=== PATIENT | male | born 1980 | race Asian ===

== ENCOUNTER 2023-05-13 13:49 | Emergency (ER) | payer SELFPAY ==
[2023-05-13 14:00] VITALS: BP 138/89; PULSE 110; RESP 22; TEMP 36.8; O2SAT 98; BMI 34.4
--- NOTE | 2023-05-13 14:08 | DI.RAD.S_ITS ---
PROCEDURE: XR CHEST 1V INDICATIONS: Shortness of breath TECHNIQUE: One view of the chest was acquired. COMPARISON: None. FINDINGS: Surgical changes and devices: None. Lungs and pleura: Mild patchy right basilar airspace opacity. No pleural effusions or pneumothorax. Mediastinum: Mediastinal contours appear normal. Heart size is normal. Bones and chest wall: No suspicious bony lesions. Overlying soft tissues appear unremarkable. IMPRESSION: Right basilar pneumonia. Continued plain film surveillance is recommended to ensure resolution, and to exclude underlying or central malignancy. Dictated by: Apoorva Nova M.D. on 05/13/2023 at 14:41 Approved by: Apoorva Nova M.D. on 05/13/2023 at 14:41
[2023-05-13 14:22] VITALS: BP 116/79; PULSE 100; RESP 20; O2SAT 96
[2023-05-13 14:53] LABS: Influenza A - CEPHEID Flu A NEGATIVE (NEGATIVE); Influenza B - CEPHEID Flu B NEGATIVE (NEGATIVE); Respiratory Syncytial Virus Negative (Negative)
--- NOTE | 2023-05-13 14:59 | ED.SOB ---
HPI - SOB/Dyspnea <Wanda White PA-C - Last Filed: 05/13/23 15:29> General Chief Complaint: Shortness of Breath/Dyspnea Stated Complaint: wants cough checked on Time Seen by Provider: 05/13/23 14:33 Source: patient Mode of arrival: Ambulatory Limitations: no limitations History of Present Illness HPI Narrative: 42-year-old male presents to the ED with 3 weeks of residual cough from a viral URI. Patient also endorses that he tires easily on exertion. Patient denies fever, chills, chest pain, shortness of breath, nausea, vomiting, lightheadedness, dizziness, syncope. Patient has been taking [id number] Robitussin with no relief. Related Data Previous Rx's Medication Instructions Recorded azithromycin 250 mg tablet See Rx Instructions PO .COMPLEX #6 05/13/23 (Zithromax Z-Gavin) tabs benzonatate 200 mg capsule 200 mg PO TID PRN cough #30 caps 05/13/23 Allergies Allergy/AdvReac Type Severity Reaction Status Date / Time No Known Drug Allergies Allergy Verified 05/13/23 14:00 Review of Systems <Wanda White PA-C - Last Filed: 05/13/23 15:29> Constitutional Constitutional: Denies chills, Denies fatigue, Denies fever(s), Denies frequent falls, Denies lethargy and Denies weakness Eyes Eyes: Denies change in vision, Denies eye discharge, Denies irritation and Denies loss of vision ENT Ears, Nose, Mouth, and Throat: Denies change in voice, Denies dizziness, Denies neck pain, Denies sore throat and Denies throat swelling Cardiovascular Cardiovascular: Denies chest pain, Denies irregular heart rhythm, Denies lightheadedness, Denies palpitations, Denies dyspnea, Reports dyspnea on exertion and Denies orthopnea Respiratory Respiratory: Reports cough, Denies dyspnea, Reports dyspnea on exertion and Denies wheezing Gastrointestinal Gastrointestinal: Denies abdominal pain, Denies change in bowel habits, Denies diarrhea, Denies nausea and Denies vomiting Musculoskeletal Musculoskeletal: Denies neck pain and Denies numbness Integumentary/Breasts Skin/Breast: Denies pruritus, Denies erythema, Denies rash and Denies wounds Neurologic Neurologic: Denies behavioral changes, Denies confusion, Denies dizziness, Denies frequent falls, Denies loss of vision, Denies numbness and Denies weakness Psychiatric Psychiatric: Denies anxiety, Denies behavioral changes, Denies confusion, Denies depression, Denies homicidal ideation and Denies suicidal ideation Endocrine Endocrine: Denies fatigue, Denies flushing and Denies palpitations Hematologic/Lymphatic Hematologic/Lymphatic: Denies easy bruising Allergic/Immunologic Allergic/Immunologic: Denies urticaria, Denies throat swelling and Denies wheezing Patient History <Wanda White PA-C - Last Filed: 05/13/23 15:29> Social History Smoking Status: Current every day smoker Smoking Status: Current every day smoker tobacco type: vaping Substance Use Type: marijuana Exam <Wanda White PA-C - Last Filed: 05/13/23 15:29> Narrative Exam Narrative: Const General:?cooperative, healthy appearing and comfortable HENMD Head:?normal to inspection Ears:?hearing grossly normal bilaterally Nose:?external nose normal Face and sinus:?normal facial exam and sinuses nontender Mouth:?oral mucosae normal Throat:?posterior oropharynx normal Eyes General:?appearance normal, both eyes and all related structures Neck Neck:?normal visual inspection and no lymphadenopathy noted Resp Effort & Inspection:?normal respiratory effort Auscultation:?clear to auscultation bilaterally Cardio Rate:?regular rate Rhythm:?regular rhythm Neuro General:?patient alert, patient awake and patient oriented x3 Initial Vital Signs Initial Vital Signs: Vital Signs Temperature 98.3 F 05/13/23 14:00 Pulse Rate 110 H 05/13/23 14:00 Respiratory Rate 05/13/23 14:00 Blood Pressure 138/89 05/13/23 14:00 Pulse Oximetry 98 05/13/23 14:00 Oxygen Delivery Method Room Air 05/13/23 14:00 <Kristal Paulino DO - Last Filed: 05/13/23 19:12> Initial Vital Signs Initial Vital Signs: Vital Signs Temperature 98.3 F 05/13/23 14:00 Pulse Rate 110 H 05/13/23 14:00 Respiratory Rate 22 05/13/23 14:00 Blood Pressure 138/89 05/13/23 14:00 Pulse Oximetry 98 05/13/23 14:00 Oxygen Delivery Method Room Air 05/13/23 14:00 Course <Wanda White PA-C - Last Filed: 05/13/23 15:29> Orders Ordered: ED Orders 05/13/23 14:05 Covid-19 + FLU A/B + RSV - PCR Stat 05/13/23 14:08 XR chest 1V Stat EKG-12 Lead Stat Measure peak expiratory flow ONCE RT Consult Eval and Treat NOW Vital Signs Vital signs: Vital Signs - 8 hr 05/13/23 14:00 05/13/23 14:22 Temperature 98.3 F Pulse Rate 110 H 100 H Respiratory Rate 22 20 Blood Pressure 138/89 116/79 Pulse Oximetry 98 96 Oxygen Delivery Method Room Air Room Air <Kristal Paulino DO - Last Filed: 05/13/23 19:12> Orders Ordered: ED Orders 05/13/23 14:05 Covid-19 + FLU A/B + RSV - PCR Stat 05/13/23 14:08 XR chest 1V Stat EKG-12 Lead Stat Measure peak expiratory flow ONCE RT Consult Eval and Treat NOW Vital Signs Vital signs: Vital Signs - 8 hr 05/13/23 14:00 05/13/23 14:22 Temperature 98.3 F Pulse Rate 110 H 100 H Respiratory Rate 22 20 Blood Pressure 138/89 116/79 Pulse Oximetry 98 96 Oxygen Delivery Method Room Air Room Air MDM - SOB/Dyspnea <Wanda White PA-C - Last Filed: 05/13/23 15:29> Lab Data Labs: Lab Results 05/13/23 Range/Units 14:05 SARS-CoV-2 (PCR) Negative (Negative) Influenza A (RT-PCR) Flu a negative (NEGATIVE) Influenza B (RT-PCR) Flu b negative (NEGATIVE) RSV (PCR) Negative (Negative) MDM Narrative Medical decision making narrative: 42-year-old male presents to the ED with 3 weeks of residual cough from a viral URI. Concern for pneumonia versus viral URI versus acute bronchitis versus other. Obtained chest x-ray which shows right basilar pneumonia. Respiratory swab negative for influenza, COVID-19, RSV. Prescribed Z-Gavin and Tessalon Perles. Recommend follow-up with PCP as soon as possible. ED return precautions discussed with patient. Patient verbalized understanding. Medical records reviewed: Yes <Kristal Paulino DO - Last Filed: 05/13/23 19:12> Lab Data Labs: Lab Results 05/13/23 Range/Units 14:05 SARS-CoV-2 (PCR) Negative (Negative) Influenza A (RT-PCR) Flu a negative (NEGATIVE) Influenza B (RT-PCR) Flu b negative (NEGATIVE) RSV (PCR) Negative (Negative) Discharge Plan Departure Patient Disposition: Home Clinical Impression: Community acquired pneumonia Instructions: DI for Pneumonia -- Adult Activity Restrictions/Additional Instructions: You were evaluated in the ED today for a residual cough from a upper respiratory infection. Your chest xray shows a pneumonia for which you are being prescribed antibiotics. You are being prescribed Tessalon Perles for your cough. Please take those as prescribed. You may also use Mucinex for your symptoms. Please continue to stay well hydrated. Please follow-up with your PCP as soon as possible. Return to the ED if you have worsening symptoms, persistent vomiting, chest pain, shortness of breath. Prescriptions: New benzonatate 200 mg capsule 200 mg PO TID PRN (Reason: cough) Qty: 30 0RF azithromycin [Zithromax Z-Gavin] 250 mg tablet See Rx Instructions .ROUTE .COMPLEX Qty: 6 0RF Rx Instructions: For 250 mg dose pack: take 500 mg today (day 1), then 250 mg for 4 days (days 2-5) Stand Alone Forms: Patient Portal/API ED Sign-out <Kristal Paulino DO - Last Filed: 05/13/23 19:12> Cosign ED Attending Sebastianature Attestation: I was immediately available in the department for consultation.
[2023-05-13 15:01] LABS: COVID-19 CEPHEID 4-PLEX PCR Negative (Negative)
== END 2023-05-13 14:55 | disposition home or self-care (01) ==
PROVIDERS: Emergency Medicine; Emergency Provider Student in an Organized Health Care Education/Training Program
DX: J18.9 Pneumonia, unspecified organism (principal)
CPT/HCPCS: 0241U; 71045; 93005; 93010; 99281; 99284

== ENCOUNTER 2024-02-20 21:22 | Emergency (ER) | payer OTHER, SELFPAY ==
[2024-02-20 21:32] VITALS: BP 130/77; PULSE 106; RESP 16; TEMP 37.1; O2SAT 99; BMI 36.5
--- NOTE | 2024-02-20 21:55 | ED.URI ---
HPI - URI/Sore Throat General Chief Complaint: Upper Respiratory Symptoms Stated Complaint: Bad Sore Throat, Diff Swallowing Time Seen by Provider: 02/20/24 21:25 Source: patient Mode of arrival: Ambulatory History of Present Illness HPI Narrative: 43-year-old male with no reported past medical history presents for 3 days of sore throat. Patient states that he has trouble both swallowing and spitting saliva. Denies fevers. Is concerned that he has strep throat. Related Data Previous Rx's Medication Instructions Recorded azithromycin 250 mg tablet See Rx Instructions PO .COMPLEX #6 05/13/23 (Zithromax Z-Gavin) tabs benzonatate 200 mg capsule 200 mg PO TID PRN cough #30 caps 05/13/23 lidocaine HCl 2 % mucosal solution 1 applic mucous membrane TID PRN 02/20/24 (Lidocaine Viscous) pain #100 mL Allergies Allergy/AdvReac Type Severity Reaction Status Date / Time No Known Drug Allergies Allergy Verified 05/13/23 14:00 Patient History Social History Smoking Status: Current every day smoker Smoking Status: Current every day smoker tobacco type: vaping Substance Use Type: marijuana Exam Initial Vital Signs Initial Vital Signs: Vital Signs Temperature 98.8 F 02/20/24 21:32 Pulse Rate 106 H 02/20/24 21:32 Respiratory Rate 16 02/20/24 21:32 Blood Pressure 130/77 02/20/24 21:32 Pulse Oximetry 99 02/20/24 21:32 Oxygen Delivery Method Room Air 02/20/24 21:32 Const: Awake, alert, uncomfortable, nontoxic appearing HEENT: Slightly dry mucous membranes, pharyngeal erythema minimal edema, no exudates Skin: Warm, Dry, intact, no rashes Neuro: AO x3, CN II-XII grossly intact, moves all extremities Course Orders Ordered: ED Orders 02/20/24 22:00 Strep Grp A by PCR Rapid Stat Throat Culture Stat Discontinued Medications Dexamethasone (Dexamethasone 10 Mg/Ml Vial) 10 mg PO NOW ONE Stop: 02/20/24 21:50 Last Admin: 02/20/24 21:57 Dose: 10 mg Documented By: SB Ketorolac Tromethamine (Ketorolac 30 Mg/Ml Vial) 30 mg IM NOW ONE Stop: 11/15/24 21:50 Last Admin: 02/20/24 21:57 Dose: 30 mg Documented By: LEVI Lidocaine HCl (Lidocaine Viscous 2% 15 Ml Solution) 15 ml PO NOW ONE Stop: 02/20/24 21:50 Last Admin: 02/20/24 21:57 Dose: 15 ml Documented By: LEVI Vital Signs Vital signs: Vital Signs - 8 hr 02/20/24 21:32 02/20/24 22:52 Temperature 98.8 F 98.7 F Pulse Rate 106 H 116 H Respiratory Rate 16 16 Blood Pressure 130/77 113/90 Pulse Oximetry 99 98 Oxygen Delivery Method Room Air Room Air MDM - URI/Sore Throat Lab Data Labs: Lab Results 02/20/24 Range/Units 22:00 Group A Strep (PCR) Negative (Negative) MDM Narrative Medical decision making narrative: Three days of pharyngitis. Patient does have mildly dry mucous membranes, very slightly tachycardic on exam, however patient states that he has significant pain with swallowing, and has decreased his p.o. intake subsequently. Patient does have pharyngeal erythema with minimal edema. No evidence of peritonsillar abscess at this time. Patient was given anti-inflammatory, Decadron, oral lidocaine. Patient reported improvement in symptoms and was able to drink some p.o. apple juice while in the exam room. Patient relieved to know that he was not have strep throat. A short prescription of viscous lidocaine to swish and spit was sent to pharmacy of choice. Discharge Plan Departure Patient Disposition: Home Clinical Impression: Pharyngitis Instructions: DI for Pharyngitis/Tonsillopharyngitis -- Adult Activity Restrictions/Additional Instructions: Your strep test was negative. This is likely a virus causing a sore throat. Take Tylenol and ibuprofen for pain. Prescriptions: New lidocaine HCl [Lidocaine Viscous] 2 % solution 1 applic mucous membrane TID PRN (Reason: pain) Qty: 100 0RF No Action benzonatate 200 mg capsule 200 mg PO TID PRN (Reason: cough) Qty: 30 0RF azithromycin [Zithromax Z-Gavin] 250 mg tablet See Rx Instructions .ROUTE .COMPLEX Qty: 6 0RF Rx Instructions: For 250 mg dose pack: take 500 mg today (day 1), then 250 mg for 4 days (days 2-5) Stand Alone Forms: Patient Portal/API/Survey
[2024-02-20] MEDS: KETOROLAC 30 MG/ML VIAL IM (21:57)
[2024-02-20] MEDS: LIDOCAINE VISCOUS 2% 15 ML SOLUTION PO (21:57)
[2024-02-20] MEDS: DEXAMETHASONE 10 MG/ML VIAL PO (21:57)
[2024-02-20 22:19] LABS: Strep Grp A by PCR Rapid Negative (Negative)
[2024-02-20 22:52] VITALS: BP 113/90; PULSE 116; RESP 16; TEMP 37.1; O2SAT 98
== END 2024-02-20 22:55 | disposition home or self-care (01) ==
PROVIDERS: Emergency Provider Emergency Medicine
DX: J02.9 Acute pharyngitis, unspecified (principal); R00.0 Tachycardia, unspecified
CPT/HCPCS: 87070; 87147; 87651; 96372; 99283; J1100; J1885